=== PATIENT | male | born 1960 | race Caucasian/White ===

== ENCOUNTER 2025-03-10 14:45 | Emergency (ER) | payer SELFPAY ==
[2025-03-10 13:23] VITALS: BP 163/81; PULSE 68; RESP 16; TEMP 36.5; O2SAT 96
[2025-03-10 13:49] LABS: Hematocrit 41.7 % (37-53); Hemoglobin 13.10 g/dL (11.27-16.99); Mean Corpuscular HGB Conc 31.4 g/dL (30-55); Mean Corpuscular Hemoglobin 30.0 pg (27-33); Mean Corpuscular Volume 95.4 fl (82-101); Nucleated Red Blood Cells % 0 %; Platelet Count 225 10^3/cmm (157-399); Red Blood Count 4.37 10^6/uL (3.85-5.65); White Blood Count 11.12 10^3/uL (3.29-11.43)
[2025-03-10 14:09] LABS: Alanine Aminotransferase 13 U/L (0-41); Albumin Level 4.6 g/dL (3.5-5.2); Alkaline Phosphatase 119 U/L (40-130); Anion Gap 13.6 (5-19); Aspartate Amino Transferase 18 U/L (0-40); Blood Urea Nitrogen 13 mg/dL (8-23); Calcium 9.0 mg/dL (8.5-10.5); Carbon Dioxide 27 mmol/L (22-29); Chloride 99 mmol/L (98-107); Globulin 2.6 g/dL (1.3-4.6); Glucose 105 mg/dL (65-115); Osmolality Calculated 282 mOsm/kg (285-295); Potassium 3.6 mmol/L (3.5-5.1); Sodium 136 mmol/L (136-145); Total Protein 7.2 g/dL (6.6-8.7)
[2025-03-10 14:21] LABS: Acetaminophen < 5.0 ug/mL (10-30); Alcohol Level < 10 mg/dL (0-10); Salicylate < 0.3 mg/dL (3-10)
--- NOTE | 2025-03-10 14:46 | PC.PHAR ---
Pt states he is from [place] and takes no medications.
--- NOTE | 2025-03-10 14:48 | ED.C_ITS ---
Documented by User: MITCH Tolliver 03/10/25 14:55 HPI - Psych 2 General: Chief Complaint: Psychiatric Symptoms Stated Complaint: mhe Source: patient Mode of arrival: ambulatory Limitations: no limitations History of Present Illness: Patient is a 64-year-old male presents the emergency department complaining of suicidal ideations. He states he is homeless and this has exacerbated his thoughts he has a plan to cut himself states that the medical assisting program director arrived and confiscated his knife that he was attempting to cut himself with. Reports a history of this in the past, states he has not taken any medications for a month, does not specifically relate to me what medications he is aware though he does report to me a history of bipolar schizophrenia. Has no homicidal ideations, he does endorse seeing shadows but no auditory hallucinations or command hallucinations of any kind. States that he has been anxious and depressed, primarily because of being homeless which apparently is new for him. States he thinks he needs to see his psychiatrist and get back on medications. States he is currently feeling suicidal at this time. MD complaint: suicidal ideation Onset (ago): day(s) Duration: constant History of same: Yes Associated symptoms: Reports visual hallucinations, depression and suicidal ideation; Deny auditory hallucinations or homicidal ideation Related Data Home Medications ?Medication ?Instructions ?Recorded ?Confirmed No Known Home Medications 03/10/2502/26 Allergies Allergy/AdvReac Type Severity Reaction Status Date / Time Fish Containing Products Allergy Unknown Verified 03/10/25 13:23 Review of Systems 2 General: Reports: 10 or more systems reviewed and unremarkable except in HPI and below Const: Denies: fever(s), chills or fatigue Eyes: Denies: change in vision ENMT: Denies: throat pain, ear or mastoid pain or nasal discharge Card: Denies: chest pain, palpitations, swelling of feet/ankles or lightheadedness Resp: Denies: dyspnea, productive cough or wheezing GI: Denies: abdominal pain, nausea, vomiting, diarrhea or constipation : Denies: flank pain, difficulty urinating, dysuria or urinary frequency Musc: Denies: neck pain, back pain or joint pain Skin/Breast: Denies: rash Neuro: Denies: headache(s), numbness in extremities or weakness in extremities Psych: Reports: anxiety, depression, visual hallucinations and suicidal ideation; Denies: auditory hallucinations, tactile hallucinations or homicidal ideation Physical Exam 2 Const: COMMON NORMALS: no acute distress, patient oriented x3 and no limitations GENERAL APPEARANCE: cooperative, comfortable and well developed ORIENTATION/CONSCIOUSNESS: Yes awake, Yes oriented to person, Yes oriented to place and Yes oriented to time HENMT: COMMON NORMALS: normocephalic, atraumatic and hearing grossly normal bilaterally HEAD & SCALP: normocephalic and atraumatic Eye: COMMON NORMALS: Equal, round and reactive pupils present, EOMs intact bilaterally and conjunctivae normal CONJUNCTIVA: Yes conjunctivae normal P UPIL: Yes Equal, round and reactive pupils present Neck/C-Spine: COMMON NORMALS: full ROM, supple and no JVD Resp: COMMON NORMALS: normal respiratory effort, No retractions, No use of accessory muscles and clear to auscultation bilaterally AUSCULTATION: clear to auscultation bilaterally Cardio: COMMON NORMALS: no JVD, regular rate, regular rhythm, No clicks present (Cardio), No murmurs present (Cardio) and No rub (Cardio) RATE: r egular rate RHYTHM: regular rhythm Extremity: COMMON NORMALS: normal to inspection, full ROM and capillary refill normal Neuro: COMMON NORMALS: patient oriented x3, moves all extremities, no focal motor deficits and no sensory deficits noted SENSORIUM/ORIENTATION: Yes oriented to person, Yes oriented to place and Yes oriented to time Psych: COMMON NORMALS: mental status grossly normal and Normal thought process present APPEARANCE: Yes unkempt THOUGHT PROCESS: Normal thought process present THOUGHT CONTENT: Yes Suicidality present, No Homicidality present and Yes Hallucination(s) present visual Skin: COMMON NORMALS: no rashes or lesions noted GENERAL SKIN EXAM: no rashes or lesions noted Course 2 Vital Signs: Vital signs: Vital Signs Temperature 97.7 F 03/10/25 13:23 Pulse Rate 68 03/10/25 13:23 Respiratory Rate 16 03/10/25 13:23 Blood Pressure 163/81 03/10/25 13:23 Pulse Oximetry 96 03/10/25 13:23 Oxygen Delivery Me thod Room Air 03/10/25 13:23 MDM - Psych Medical Decision Making Patient presented for complaints of suicidal ideation, reports being homeless. Reports history of similar he has been off medications for a month and states that he was on meds for bipolar schizophrenia, is unable to tell me which medications. States that he needs to see a psychiatrist. Due to his age, will transfer for geriatric psych placement, once cleared medically. Lab Data 03/10/25 13:44 03/10/25 13:44 Radiology Impressions Chest X-Ray 03/10/25 14:52 IMPRESSION: No acute findings. Laboratory Results WBC 11.12 10^3/uL (3.29-11.43) 03/10/25 13:44 RBC 4.37 10^6/uL (3.85-5.65) 03/10/25 13:44 Hgb 13.10 g/dL (11.27-16.99) 03/10/25 13:44 Hct 41.7 % (37-53) 03/10/25 13:44 MCV 95.4 fl (82-101) 03/10/25 13:44 MCH 30.0 pg (27-33) 03/10/25 13:44 MCHC 31.4 g/dL (30-55) 03/10/25 13:44 RDW 13.5 % (12.1-15.1) 03/10/25 13:44 Plt Count 225 10^3/cmm (157-399) 03/10/25 13:44 MPV 9.1 fL (7.4-10.4) 03/10/25 13:44 Neut % (Auto) 74.1 % 03/10/25 13:44 Lymph % (Auto) 18.0 % 03/10/25 13:44 [place] % (Auto) 6.4 % 03/10/25 13:44 Eos % (Auto) 0.6 % 03/10/25 13:44 Baso % (Auto) 0.5 % 03/10/25 13:44 Neut # (Auto) 8.24 10^3/uL (1.8-7.7) H 03/10/25 13:44 Lymph # (Auto) 2.0 10^3/uL (0.8-4.8) 03/10/25 13:44 [place] # (Auto) 0.7 10^3/uL (0.2-0.9) 03/10/25 13:44 Eos # (Auto) 0.1 10^3/uL (0.0-0.8) 03/10/25 13:44 Baso # (Auto) 0.1 10^3/uL (0.0-0.1) 03/10/25 13:44 Nucleated RBC % (auto) 0 % 03/10/25 13:44 Nucleated RBCs # 0.0 /100WBC 03/10/25 13:44 Sodium 136 mmol/L (136-145) 03/10/25 13:44 Potassium 3.6 mmol/L (3.5-5.1) 03/10/25 13:44 Chloride 99 mmol/L (98-107) 03/10/25 13:44 Carbon Dioxide 27 mmol/L (22-29) 03/10/25 13:44 Anion Gap 13.6 (5-19) 03/10/25 13:44 BUN 13 mg/dL (8-23) 03/10/25 13:44 Creatinine 0.9 mg/dL (0.7-1.2) 03/10/25 13:44 GFR Calculation 84.4 mL/min (90-130) L 03/10/25 13:44 Glucose 105 mg/dL (65-115) 03/10/25 13:44 Calculated Osmolality 282 mOsm/kg (285-295) L 03/10/25 13:44 Calcium 9.0 mg/dL (8.5-10.5) 03/10/25 13:44 Total Bilirubin 0.4 mg/dL (0.15-1.2) 03/10/25 13:44 AST 18 U/L (0-40) 03/10/25 13:44 ALT 13 U/L (0-41) 03/10/25 13:44 Alkaline Phosphatase 119 U/L (40-130) 03/10/25 13:44 Total Protein 7.2 g/dL (6.6-8.7) 03/10/25 13:44 Albumin 4.6 g/dL (3.5-5.2) 03/10/25 13:44 Globulin 2.6 g/dL (1.3-4.6) 03/10/25 13:44 TSH 2.50 uIU/mL (0.27-4.20) 03/10/25 13:44 Urine Color Yellow (Yellow) 03/10/25 14:50 Urine Appearance Clear (CLEAR) 03/10/25 14:50 Urine pH 6.5 (5-7) 03/10/25 14:50 Ur Specific [place] 1.014 (1.005-1.030) 03/10/25 14:50 Urine Protein Negative (Negative) 03/10/25 14:50 Urine Glucose (UA) Trace (Normal) H 03/10/25 14:50 Urine Ketones Negative (Negative) 03/10/25 14:50 Urine Blood Negative (Negative) 03/10/25 14:50 Urine Nitrate Negative (Negative) 03/10/25 14:50 Urine Bilirubin Negative (Negative) 03/10/25 14:50 Urine Urobilinogen 0.2 mg/dL (Negative) 03/10/25 14:50 Ur Leukocyte Esterase Trace (Negative) A 03/10/25 14:50 Urine RBC 0-2 /hpf (0-2) 03/10/25 14:50 Urine WBC 0-5 /hpf (0-5) 03/10/25 14:50 Ur Squamous Epith Cells 0-5 /hpf (0-5) 03/10/25 14:50 Amorphous Sediment Not Reportable 03/10/25 14:50 Urine Bacteria None seen /hpf (NONE) 03/10/25 14:50 Hyaline Casts 0-4 /lpf H 03/10/25 14:50 Salicylates < 0.3 mg/dL (3-10) L 03/10/25 13:44 Urine Opiates Screen Negative ng/mL (Negative) 03/10/25 14:50 Acetaminophen < 5.0 ug/mL (10-30) L 03/10/25 13:44 Ur Barbiturates Screen Negative ng/mL (Negative) 03/10/25 14:50 Ur Phencyclidine Scrn Negative ng/mL (Negative) 03/10/25 14:50 Ur Amphetamines Screen Negative ng/mL (Negative) 03/10/25 14:50 U Benzodiazepines Scrn Negative ng/mL (Negative) 03/10/25 14:50 Urine Cocaine Screen Negative ng/mL (Negative) 03/10/25 14:50 U Marijuana (THC) Screen Negative ng/mL (Negative) 03/10/25 14:50 Ethyl Alcohol < 10 mg/dL (0-10) 03/10/25 13:44 Influenza A (PCR) Negative (Negative) 03/10/25 15:02 Influenza Type B (PCR) Negative (Negative) 03/10/25 15:02 RSV (PCR) Negative (Negative) 03/10/25 15:02 SARS-CoV-2 (PCR) Negative (Negative) 03/10/25 15:02 No radiology studies performed this visit Discharge Plan Discharge Patient Disposition: Xfer Psychiatric Hosp Clinical Impression: Suicidal ideation Condition: Stable Print Language: Citizen Of [place] Coding Level of Care Code ED Personal Lines Appraiser for Chg Fwd Documented by User: Sarah Whitten MD 03/10/25 16:43 HPI - Psych 2 General: Chief Complaint: Psychiatric Symptoms Stated Complaint: mhe Related Data Home Medications ?Medication ?Instructions ?Recorded ?Confirmed No Known Home Medications 03/10/2502/26 Allergies Allergy/AdvReac Type Severity Reaction Status Date / Time Fish Containing Products Allergy Unknown Verified 03/10/25 13:23 Course 2 Vital Signs: Vital signs: Vital Signs Temperature 97.7 F 03/10/25 13:23 Pulse Rate 68 03/10/25 13:23 Respiratory Rate 16 03/10/25 13:23 Blood Pressure 163/81 03/10/25 13:23 Pulse Oximetry 96 03/10/25 13:23 Oxygen Delivery Me thod Room Air 03/10/25 13:23 MDM - Psych Medical Decision Making Patient presented for complaints of suicidal ideation, reports being homeless. Reports history of similar he has been off medications for a month and states that he was on meds for bipolar schizophrenia, is unable to tell me which medications. States that he needs to see a psychiatrist. Due to his age, will transfer for geriatric psych placement, once cleared medically. The case was discussed with the midlevel provider. Evaluation and management service: I agree with the evaluation and management decisions made in this patient's care. Results interpretation: I agree with the study interpretation in this patient's care, I agree with the documentation of the study interpretation. Lab Data 03/10/25 13:44 03/10/25 13:44 Radiology Impressions Chest X-Ray 03/10/25 14:52 IMPRESSION: No acute findings. Laboratory Results WBC 11.12 10^3/uL (3.29-11.43) 03/10/25 13:44 RBC 4.37 10^6/uL (3.85-5.65) 03/10/25 13:44 Hgb 13.10 g/dL (11.27-16.99) 03/10/25 13:44 Hct 41.7 % (37-53) 03/10/25 13:44 MCV 95.4 fl (82-101) 03/10/25 13:44 MCH 30.0 pg (27-33) 03/10/25 13:44 MCHC 31.4 g/dL (30-55) 03/10/25 13:44 RDW 13.5 % (12.1-15.1) 03/10/25 13:44 Plt Count 225 10^3/cmm (157-399) 03/10/25 13:44 MPV 9.1 fL (7.4-10.4) 03/10/25 13:44 Neut % (Auto) 74.1 % 03/10/25 13:44 Lymph % (Auto) 18.0 % 03/10/25 13:44 [place] % (Auto) 6.4 % 03/10/25 13:44 Eos % (Auto) 0.6 % 03/10/25 13:44 Baso % (Auto) 0.5 % 03/10/25 13:44 Neut # (Auto) 8.24 10^3/uL (1.8-7.7) H 03/10/25 13:44 Lymph # (Auto) 2.0 10^3/uL (0.8-4.8) 03/10/25 13:44 [place] # (Auto) 0.7 10^3/uL (0.2-0.9) 03/10/25 13:44 Eos # (Auto) 0.1 10^3/uL (0.0-0.8) 03/10/25 13:44 Baso # (Auto) 0.1 10^3/uL (0.0-0.1) 03/10/25 13:44 Nucleated RBC % (auto) 0 % 03/10/25 13:44 Nucleated RBCs # 0.0 /100WBC 03/10/25 13:44 Sodium 136 mmol/L (136-145) 03/10/25 13:44 Potassium 3.6 mmol/L (3.5-5.1) 03/10/25 13:44 Chloride 99 mmol/L (98-107) 03/10/25 13:44 Carbon Dioxide 27 mmol/L (22-29) 03/10/25 13:44 Anion Gap 13.6 (5-19) 03/10/25 13:44 BUN 13 mg/dL (8-23) 03/10/25 13:44 Creatinine 0.9 mg/dL (0.7-1.2) 03/10/25 13:44 GFR Calculation 84.4 mL/min (90-130) L 03/10/25 13:44 Glucose 105 mg/dL (65-115) 03/10/25 13:44 Calculated Osmolality 282 mOsm/kg (285-295) L 03/10/25 13:44 Calcium 9.0 mg/dL (8.5-10.5) 03/10/25 13:44 Total Bilirubin 0.4 mg/dL (0.15-1.2) 03/10/25 13:44 AST 18 U/L (0-40) 03/10/25 13:44 ALT 13 U/L (0-41) 03/10/25 13:44 Alkaline Phosphatase 119 U/L (40-130) 03/10/25 13:44 Total Protein 7.2 g/dL (6.6-8.7) 03/10/25 13:44 Albumin 4.6 g/dL (3.5-5.2) 03/10/25 13:44 Globulin 2.6 g/dL (1.3-4.6) 03/10/25 13:44 TSH 2.50 uIU/mL (0.27-4.20) 03/10/25 13:44 Urine Color Yellow (Yellow) 03/10/25 14:50 Urine Appearance Clear (CLEAR) 03/10/25 14:50 Urine pH 6.5 (5-7) 03/10/25 14:50 Ur Specific [place] 1.014 (1.005-1.030) 03/10/25 14:50 Urine Protein Negative (Negative) 03/10/25 14:50 Urine Glucose (UA) Trace (Normal) H 03/10/25 14:50 Urine Ketones Negative (Negative) 03/10/25 14:50 Urine Blood Negative (Negative) 03/10/25 14:50 Urine Nitrate Negative (Negative) 03/10/25 14:50 Urine Bilirubin Negative (Negative) 03/10/25 14:50 Urine Urobilinogen 0.2 mg/dL (Negative) 03/10/25 14:50 Ur Leukocyte Esterase Trace (Negative) A 03/10/25 14:50 Urine RBC 0-2 /hpf (0-2) 03/10/25 14:50 Urine WBC 0-5 /hpf (0-5) 03/10/25 14:50 Ur Squamous Epith Cells 0-5 /hpf (0-5) 03/10/25 14:50 Amorphous Sediment Not Reportable 03/10/25 14:50 Urine Bacteria None seen /hpf (NONE) 03/10/25 14:50 Hyaline Casts 0-4 /lpf H 03/10/25 14:50 Salicylates < 0.3 mg/dL (3-10) L 03/10/25 13:44 Urine Opiates Screen Negative ng/mL (Negative) 03/10/25 14:50 Acetaminophen < 5.0 ug/mL (10-30) L 03/10/25 13:44 Ur Barbiturates Screen Negative ng/mL (Negative) 03/10/25 14:50 Ur Phencyclidine Scrn Negative ng/mL (Negative) 03/10/25 14:50 Ur Amphetamines Screen Negative ng/mL (Negative) 03/10/25 14:50 U Benzodiazepines Scrn Negative ng/mL (Negative) 03/10/25 14:50 Urine Cocaine Screen Negative ng/mL (Negative) 03/10/25 14:50 U Marijuana (THC) Screen Negative ng/mL (Negative) 03/10/25 14:50 Ethyl Alcohol < 10 mg/dL (0-10) 03/10/25 13:44 Influenza A (PCR) Negative (Negative) 03/10/25 15:02 Influenza Type B (PCR) Negative (Negative) 03/10/25 15:02 RSV (PCR) Negative (Negative) 03/10/25 15:02 SARS-CoV-2 (PCR) Negative (Negative) 03/10/25 15:02 Discharge Plan Discharge Patient Disposition: Xfer Psychiatric Hosp Clinical Impression: Suicidal ideation Condition: Stable Print Language: Citizen [place] Coding Level of Care Code ED Personal Lines Appraiser for Mando Devi
--- NOTE | 2025-03-10 14:52 | XRR_ITS ---
PROCEDURE INFORMATION: Exam: XR Chest Exam date and time: 03/10/2025 3:00 PM Age: 64 years old Clinical indication: Screening exam; Other screening; Additional info: Mhe; Clearance for psych placement TECHNIQUE: Imaging protocol: Radiologic exam of the chest. Views: 1 view. COMPARISON: No relevant prior studies available. FINDINGS: Lungs: Unremarkable. No consolidation or mass. Pleural spaces: Unremarkable. No pleural effusion. No pneumothorax. Heart/Mediastinum: Unremarkable. No cardiomegaly. Bones/joints: Unremarkable. XR/XR chest 1V portable [id number] IMPRESSION: No acute findings.
--- NOTE | 2025-03-10 14:52 | ECG_ITS ---
[facility] Test Date: 2025-03-10 Pat Name: Dalton Neely Department: Room: Gender: Male Dietetic Intern: : 1960 Requested By: Dalton Perez Order Number: [id number] Bautista MD: Moshe Nunez M.D. Measurements Intervals Bessie Rate: 61 P: 70 AL: 167 QRS: 81 QRSD: 139 T: 14 QT: 350 QTc: 355 Interpretive Statements SINUS RHYTHM INTRAVENTRICULAR CONDUCTION DELAY [130+ ms QRS DURATION] No previous ECG available for comparison Electronically Signed On 03-10-2025 19:58:25 HEEL SPRAYER by Moshe Nunez M.D. [email or web address]
[2025-03-10 15:06] LABS: Glucose Urine UA Trace (Normal); Nitrate Urine Negative (Negative); Specific Gravity, Urine 1.014 (1.005-1.030)
[2025-03-10 15:09] LABS: PCP Screen Urine Negative (Negative)
[2025-03-10 15:11] LABS: Add Urine Microscopic? YES
[2025-03-10 15:29] LABS: Thyroid Stimulating Hormone 2.50 uIU/mL (0.27-4.20)
[2025-03-10 15:40] LABS: Respiratory Syncytial Virus Ce NEGATIVE (Negative); SARS-CoV-2 PCR NEGATIVE (Negative)
[2025-03-11] VITALS: BP 132/79; PULSE 67; RESP 18; O2SAT 97
--- NOTE | 2025-03-11 03:52 | PC.NURSE ---
[facility] called and requested that i wake the patient up and that he needs to speak with him about his stay here and what is going on. his name is norma. patient agreed and walked with rn to phone at desk then back to bed after phone call was over.
[2025-03-11 04:34] VITALS: BP 143/92; PULSE 78; RESP 17; O2SAT 98
--- NOTE | 2025-03-11 05:26 | PC.NURSE ---
report called to [facility] spoke to norma lee
[2025-03-11 05:51] VITALS: BP 106/49; PULSE 67; RESP 19; O2SAT 96
[2025-03-11] MEDS: haloperidol inj 5 mg/mL INJ 1 mL IM (08:17)
[2025-03-11] MEDS: LORazepam 2 mg/mL INJ 1 mL IM (08:17)
--- NOTE | 2025-03-11 08:17 | PC.NURSE ---
Pt was read his 96 hour rights at this time. Security present. Pt was yelling the entire time calling this nurse a fat whore and saying your mother does drugs .
--- NOTE | 2025-03-11 08:38 | PC.NURSE ---
PATIENT ESCALATED AT BEDSIDE AFTER BEING TOLD HE WAS BEING TRANSFERRED TO [place]. PATIENT EXITING ROOM AND SHOUTING AT MULTIPLE NURSES CALLING EACH OF US WHORES , FAT BITCHES , AND STATING YOUR MOTHER DOES DRUGS. VERBAL DE-ESCALATION ATTEMPTED. SECURITY CALLED. PATIENT CONTINUES TO STATE I'M NOT STAYING AND TO GET THE FREELANCE OPERATOR. PATIENT VERBALLY THREATENING TO HIT STAFF. DR MCKEON NOTIFIED.
--- NOTE | 2025-03-11 17:37 | PC.NURSE ---
Assumed Pt. care.
--- NOTE | 2025-03-11 17:41 | PC.NURSE ---
Pt. resting on bed, pt. refuses to let this RN take the BP. pt. states we can take vitals later.
[2025-03-11 18:27] VITALS: BP 128/72; PULSE 53; O2SAT 97
--- NOTE | 2025-03-11 23:24 | PC.NURSE ---
this RN talked to the facility that wanted more information to accept pt. Pt. refuses to cooperate to answer questions.
[2025-03-12] MEDS: water for injection-sterile 10 ML (00:05)
--- NOTE | 2025-03-12 00:16 | PC.NURSE ---
At 0004 Pt. was given 1mL Geodone. pt. continues to be uncooperative. Pt. refuses to give information needed for transfer facility. Pt. was cursing at staff calling us [facility] and yelling im not giving you any information. call the law . Pt. was given geodon with security this rn and charge nurse at bedside.
--- NOTE | 2025-03-12 00:23 | PC.NURSE ---
Pt. was given IM geodone at 0004 after this RN attempted to get needed information for accepting facility. pt. refused. this RN talked with charge rn who went to MD who decided to administer IM geodone to help pt. become more cooperative. Pt. willingly took meds this RN, charge rn and security was at bedside. pt. refuses vital signs. this RN mixed the geodone incorrectly and needed to waste bottle and talk to MD to order a new order.
[2025-03-12 01:14] VITALS: BP 118/62; PULSE 54; O2SAT 95
--- NOTE | 2025-03-12 01:21 | PC.NURSE ---
report given to Kadi RAMOS.
[2025-03-12 06:43] VITALS: BP 125/67; PULSE 51; TEMP 36.3; O2SAT 98
[2025-03-12 08:00] VITALS: BP 126/85; PULSE 86; RESP 16; O2SAT 99
--- NOTE | 2025-03-12 10:48 | PC.NURSE ---
Report to [facility] Headstart Teacher Efren. Sending transport
== END 2025-03-12 11:30 ==
PROVIDERS: Physician Assistant; Emergency Provider Emergency Medicine
DX: R45.851 Suicidal ideations (principal); Z11.52 Encounter for screening for COVID-19
CPT/HCPCS: 36415; 71045; 80053; 80306; 80307; 81001; 84443; 85025; 87637; 93005; 96372; 99285; J1630; J2060; J3486